=== PATIENT | male | born 1940 | race Caucasian/White ===

== ENCOUNTER → 2017-04-21 | Outpatient (CLI) | payer OTHER ==
[~2017-04-21] MED LIST: GADOBUTROL 10 ML VIAL IVP ONE
== END ==
LOC: FIMAGING 12:56
PROVIDERS: ATTEND Nurse Practitioner
DX: M70.61 Trochanteric bursitis, right hip (principal); M76.01 Gluteal tendinitis, right hip; C34.90 Malignant neoplasm of unspecified part of unspecified bronchus or lung
CPT/HCPCS: 73723; A9585

== ENCOUNTER → 2018-05-15 | Outpatient (CLI) | payer OTHER | LOC: BRMIMAGING 10:33 | PROVIDERS: ATTEND Internal Medicine Hematology & Oncology | DX: N28.89 Other specified disorders of kidney and ureter (principal) | CPT/HCPCS: 76770-PO ==